=== PATIENT | female | born 1985 | race Caucasian/White ===

== ENCOUNTER 2018-12-03 21:13 | Emergency (ER) | payer BC ==
[2018-12-03 21:38] VITALS: BP 148/85; PULSE 78; RESP 18; TEMP 98.4
[2018-12-03] MEDS ORDERED: LIDOCAINE 1% INJ 10MG/ML (20 ML MDV) SQ ONE (21:58)
--- NOTE | 2018-12-03 22:23 | ED ---
Wound/Laceration HPI - General Chief Complaint: Wound/Laceration Stated Complaint: Hand laceration Time Seen by Provider: 12/03/18 21:56 Source: patient Mode of arrival: ambulatory Limitations: no limitations - History of Present Illness Initial Comments: 33 to feel presenting today for chief complaint of right hand laceration. Patient states she was using a knife to cut better when she cut the palm of her right hand, just proximal to the MTP of the small finger. Patient denies any foreign body, he denies any numbness tingling or loss sensation, decreased range of motion at the digits of the right hand or muscle weakness. Patient denies any sensation deficits. Patient denies any other areas of injury. Patient states her tetanus is up-to-date within the last 5 years. Remaining review of systems negative upon arrival patient appears well no acute distress. Patient denies any recent fever, chills, shortness of breath, chest pain, back pain, abdominal pain, nausea or vomiting, numbness or tingling, dysuria or hematuria, constipation or diarrhea, headaches or visual changes, or any other complaints. - Related Data Home Medications Medication Instructions Recorded Confirmed Ibuprofen [Motrin Ib] 600 mg PO Q8H 12/03/18 12/03/18 Allergies Allergy/AdvReac Type Severity Reaction Status Date / Time No Known Allergies Allergy Verified 12/03/18 21:38 Review of Systems ROS Statement: Those systems with pertinent positive or pertinent negative responses have been documented in the HPI. ROS Other: All systems not noted in ROS Statement are negative. Past Medical History Past Medical History: No Reported History History of Any Multi-Drug Resistant Organisms: None Reported Past Surgical History: No Surgical Hx Reported Past Psychological History: No Psychological Hx Reported Smoking Status: Never smoker Past Alcohol Use History: Rare Past Drug Use History: None Reported General Exam - General Exam Comments Initial Comments: General: The patient is awake and alert, in no distress, and does not appear acutely ill. Eye: Pupils are equal, round and reactive to light, extra-ocular movements are intact. No nystagmus. There is normal conjunctiva bilaterally. No signs of icterus. Cardiovascular: There is a regular rate and rhythm. No murmur, rub or gallop is appreciated. Respiratory: Lungs are clear to auscultation, respirations are non-labored, breath sounds are equal. No wheezes, stridor, rales, or rhonchi. Musculoskeletal: Normal ROM, no tenderness. Strength 5/5. Sensation intact. Pulses equal bilaterally 2+. Neurological: A&O x 3. CN II-XII intact, There are no obvious motor or sensory deficits. Coordination appears grossly intact. Speech is normal. Skin: Skin is warm and dry and no rashes or lesions are noted. 1-1/2 cm laceration of the right palm just proximal to the MTP at the fifth digit. Laceration is through the dermis, mild exposure of adipose, no exposure of tendon or other structure. Patient is able to fully range at the MTP DIP and PIP joint of the right hand, joints were isolated equal comparison with the unaffected hand. No sensation deficits, sensation intact both proximal and distal to injury. Capillary refill less than 2 seconds. No other area of laceration no evidence of foreign body Psychiatric: Cooperative, appropriate mood & affect, normal judgment. Limitations: no limitations Course Vital Signs 12/03/18 21:36 Temperature 98.4 F Pulse Rate 78 Respiratory 18 Rate Blood Pressure 148/85 O2 Sat by Pulse 98 Oximetry Procedures - Laceration Laceration #1 Consent Obtained: verbal consent Indication: laceration Site: hand (near 5th MTP joint proximally) Size (cm): 2 Description: linear Depth: simple, single layer Anesthetic Used: lidocaine 1% Anesthesia Technique: local infiltration Amount (mls): 2 Pre-repair: wound explored, irrigated extensively, deep structures intact Size of Sutures: 5-0 Number of Sutures: 5 Technique: simple, interrupted Patient Tolerated Procedure: well, no complications Medical Decision Making - Medical Decision Making Wound edges approximated well, after cleansing with iodine and extensive irrigation. No exposure of underlying structure. No evidence of tendon injury. Patient neurovascular intact. Full range of motion with full muscle strength. Patient tetanus up-to-date. I did discuss the case with attending provider Dr. Galindo. Patient has no comorbidities, patient was educated on signs symptoms of infection as well as return parameters. Patient is to return in 7 days for suture removal. Patient verbalized understanding of plan and deny questions at this time. Suture care was discussed at length the patient. Disposition Clinical Impression: Hand laceration Disposition: HOME SELF-CARE Condition: Good Instructions (If sedation given, give patient instructions): Care For Your Stitches (ED), Laceration (ED) Additional Instructions: Please use medication as discussed. Please follow-up for suture removal in 7 days. Please return to emergency room if the symptoms increase or worsen or for any other concerns. Is patient prescribed a controlled substance at d/c from ED?: No Referrals: Marcos Dueñas MD [Primary Care Provider] - 1-2 days Time of Disposition: 22:23
== END 2018-12-03 22:50 | disposition home or self-care (01) ==
LOC: EC 21:13
DX: S61.411A Laceration without foreign body of right hand, initial encounter (principal); W26.0XXA Contact with knife, initial encounter
CPT/HCPCS: 99282; 12001; J2001

== ENCOUNTER → 2018-12-07 | Outpatient (CLI) | payer BC ==
--- NOTE | 2018-12-08 20:32 | MR ---
EXAMINATION TYPE: MR brain wo con DATE OF EXAM: 12/07/2018 COMPARISON: None HISTORY: Headache Standard multiplanar, multisequence MRI departmental protocol Multiplanar, multisequence images of the brain were acquired. Diffusion weighted imaging was performe d. FINDINGS: Ventricles and sulci appear normal. There is no mass effect nor midline shift. There is no sign of intracranial hemorrhage. Vargas-white matter structures have fairly normal signal pattern. Ther e is no evidence of cerebral edema. Corpus callosum appears normal. Optic chiasm appears normal. Brai nstem appears normal. There is minimal mucosal thickening in the left maxillary sinus. IMPRESSION: Negative MR scan of the brain. Minimal left maxillary sinusitis.
== END | disposition home or self-care (01) ==
LOC: RADMRIMAIN 20:49
PROVIDERS: ATTEND Internal Medicine
DX: R51 Headache (principal)
CPT/HCPCS: 70551

== ENCOUNTER 2020-09-04 12:16 | Emergency (ER) | payer BC, OTHER ==
[2020-09-04 12:23] VITALS: BP 135/90; PULSE 91; RESP 18; TEMP 98.8
--- NOTE | 2020-09-04 13:01 | ED ---
Wound/Laceration HPI - General Chief Complaint: Wound/Laceration Stated Complaint: [facility]- finger injury Time Seen by Provider: 09/04/20 12:27 Source: patient Mode of arrival: ambulatory Limitations: no limitations - History of Present Illness Initial Comments: 34yo female who sustained a right index finger laceration. pt states she was using a seatbelt cutter to cut an object that was around a persons neck. she states she accidentally cut herself in the proess. pt states that the room was covering in fecal matter and urine and pateint states that she is concerned of exposure in the wound. pt denies additional complaints. Pt denies knonw infectious disease personally. (Exposure in the ER). - Related Data Home Medications Medication Instructions Recorded Confirmed Ibuprofen [Motrin Ib] 600 mg PO Q8H 12/03/18 12/03/18 Allergies Allergy/AdvReac Type Severity Reaction Status Date / Time No Known Allergies Allergy Verified 09/04/20 12:23 Review of Systems ROS Statement: Those systems with pertinent positive or pertinent negative responses have been documented in the HPI. ROS Other: All systems not noted in ROS Statement are negative. Past Medical History Past Medical History: No Reported History Additional Past Medical History / Comment(s): migraines, heart palpitations History of Any Multi-Drug Resistant Organisms: None Reported Past Surgical History: No Surgical Hx Reported Additional Past Surgical History / Comment(s): breast reduction Past Psychological History: Depression Smoking Status: Never smoker Past Alcohol Use History: Rare Past Drug Use History: None Reported General Exam - General Exam Comments Initial Comments: General: The patient is awake and alert, in no distress, and does not appear acutely ill. Eye: Pupils are equal, round and reactive to light, extra-ocular movements are intact. No nystagmus. There is normal conjunctiva bilaterally. No signs of icterus. Musculoskeletal: Normal ROM, no tenderness. Strength 5/5. Sensation intact. Pulses equal bilaterally 2+. Neurological: A&O x 3. CN II-XII intact, There are no obvious motor or sensory deficits. Coordination appears grossly intact. Speech is normal. Skin: Skin is warm and dry and no rashes. 1cm superficial skin flap, no deep laceration, bleeding controlled. Psychiatric: Cooperative, appropriate mood & affect, normal judgment. Limitations: no limitations Course Vital Signs 09/04/20 12:21 Temperature 98.8 F Pulse Rate 91 Respiratory 18 Rate Blood Pressure 135/90 O2 Sat by Pulse 96 Oximetry Medical Decision Making - Medical Decision Making 34yo female presenting today for cc of index finger injury and exposure to fecal matter/urine. Pt has superficial injury that was cleansed well with iodine and water. patient bandaged. will draw source and patient. pt denies known blood e xposure just fecal matter/urine. pt will be notified of the results. discharged appearing well. Disposition Clinical Impression: Skin avulsion Disposition: HOME SELF-CARE Condition: Good Instructions (If sedation given, give patient instructions): Abrasion (ED) Additional Instructions: Please use medication as discussed. Please follow-up with family doctor in the next 2 days.. Please return to emergency room if the symptoms increase or wors en or for any other concerns. Is patient prescribed a controlled substance at d/c from ED?: No Referrals: Marcos Dueñas MD [Primary Care Provider] - 1-2 days Time of Disposition: 13:01
[2020-09-04 20:18] LABS: HIV 2 AB Non-Reactive (Non-Reactive); HIV AB P24 Non-Reactive (Non-Reactive); HIV P24 AG Non-Reactive (Non-Reactive)
[2020-09-04 20:30] LABS: Hepatitis B Surface AB- Quant 805.9 mIU/mL; Hepatitis B Surface Antibody Reactive (Non-Reactive); Hepatitis C IgG Antibody Non-Reactive (Non-Reactive)
== END 2020-09-04 13:10 | disposition home or self-care (01) ==
LOC: EC 12:16
DX: S61.210A Laceration without foreign body of right index finger without damage to nail, initial encounter (principal); Z79.1 Long term (current) use of non-steroidal anti-inflammatories (NSAID); Z77.21 Contact with and (suspected) exposure to potentially hazardous body fluids; Z86.69 Personal history of other diseases of the nervous system and sense organs; W26.8XXA Contact with other sharp object(s), not elsewhere classified, initial encounter
CPT/HCPCS: 36415; 86706; 86803; 87390; 99283

== ENCOUNTER 2022-10-04 11:09 | Outpatient (CLI) | payer BC ==
[2022-10-04 13:06] LABS: Appearance,Urine Clear (Clear); Bacteria,Urine Many /hpf; Bilirubin,Urine Negative (Negative); Blood,Urine Trace (Negative); Color,Urine Light Yellow; Glucose,Urine (UA) Negative (Negative); Ketones,Urine Negative (Negative); Leukocyte Esterase,Urine Negative (Negative); Mucus,Urine Rare /hpf; Nitrite,Urine Negative (Negative); PH, Urine 6.5 (5.0-8.0); Protein,Urine Negative (Negative); RBC,Urine 6 /hpf (0-5); Specific Gravity,Urine 1.008 (1.001-1.035); Squamous Epithelial Cell,Urine 2 /hpf (0-4); Urobilinogen,Urine <2.0 mg/dL (<2.0); WBC,Urine 2 /hpf (0-5)
[2022-10-04 13:14] VITALS: BP 131/74; PULSE 96; RESP 18; TEMP 97.6
--- NOTE | 2022-11-05 11:29 | P.MSEPDOC ---
Presenting Problems - Arrival Data Date of Arrival on Unit: 10/04/22 Time of Arrival on Unit: 11:09 Mode of Transport: Ambulatory - Complaint OB-Reason for Admission/Chief Complaint: Rule Out PROM Comment: possible ROM 10/03 at 0930 Medical History - Information : 1 Para: 0 Term: 0 : 0 Abortions: Spontaneous or Elective: 0 Number of Living Children: 0 - Gestational Age Gestational Age by COURTNEY (wks/days): 23 Weeks and 4 Days Review of Systems - Review of Systems Constitutional: No problems Breast: No problems ENT: No problems Cardiovascular: No problems Respiratory: No problems Gastrointestinal: No problems Genitourinary: No problems Musculoskeletal: No problems Neurological: No problems Skin: No problems Vital Signs - Temperature Temperature: 97.6 F Temperature Source: Temporal Artery Scan - Pulse Pulse Oximetery Pulse Rate: 96 Pulse Assessment Method: Pulse Oximetry - Respirations Respiratory Rate: 18 Oxygen Delivery Method: Room Air O2 Sat by Pulse Oximetry: 98 - Blood Pressure Right Arm Blood Pressure: 131/74 Blood Pressure Mean: 93 Blood Pressure Source: Automatic Cuff Medical Screen Scoring - Assessment - Baby A Baseline FHR: 140 Heart Rate - NICHD Category: Category I (Normal) Physician Notification - Physician Notified Physician Notified Date: 10/04/22 Physician Notified Time: 11:47 Physician: Peewee Gayle New Order Received: Yes - Notification Comment Comment: Dr. Gayle called, report given on maternal and status, c/o possible. ROM since yesterday. Amnisure negative, no contractions noted. Orders to send a UA and. discharge pt home if negative. Maternal Triage Index - Maternal Triage Index Presenting for scheduled procedure w/no complaint: No - Stat/Priority 1 Stat Priority 1: No - Urgent/Priority 2 Urgent Priority 2: Yes Provider Notified: Peewee Gayle Provider Notified Time: 11:47 Criteria Met for Priority 2: 23 4/7 wks, possible ROM since 10/03 at 0930 Disposition - Disposition OB Disposition: Discharge to home Discharge Date: 10/04/22 Discharge Time: 13:08 I agree with the RN Medical Screening Exam: Yes Physician's MSE Comment: I have neither seen nor examined the patient. Case reviewed; plan agreed upon as documented in EMR&OBIX.: Yes Diagnosis: RELATED CONDITIONS, UNSPECIFIED, SECOND TRIMESTER
== END 2022-10-04 13:08 | disposition home or self-care (01) ==
LOC: FBPOP 11:09
PROVIDERS: ATTEND Obstetrics & Gynecology
DX: O26.892 Other specified pregnancy related conditions, second trimester (principal); Z3A.23 23 weeks gestation of pregnancy
CPT/HCPCS: 81001; 84112; 99213

== ENCOUNTER 2023-01-16 19:10 | Inpatient (IN) | payer BC ==
[2023-01-16] MEDS ORDERED: DINOPROSTONE 10 MG INSERT.ER VAGINAL ONE (19:42)
[2023-01-16] MEDS ORDERED: BUTORPHANOL 2 MG/ML 1 ML VIAL IV PRN (20:07)
--- NOTE | 2023-01-16 20:12 | P.HPOB ---
History of Present Illness H&P Date: 01/16/23 Chief Complaint: 38-3/7 weeks, -induced hypertension, induction the patient is a 37-year-old 1 para 0 admitted at 38-3/7 weeks as established by last menstrual period and confirmed by 9 week ultrasound. She is admitted for Cervidil cervical ripening with a diagnosis of -induced hypertension. Her has otherwise been uncomplicated. She does fall into the category of advanced maternal age and had negative fraction testing for trisomy. testing has been reassuring since 32 weeks. She did require addition of labetalol 100 mg twice daily in the mid to late third trimester which has controlled her blood pressures fairly well. She's had some elevated blood pressures starting today, likely from nerves regarding induction. Laboratory workup for preeclampsia has been negative on 2-3 occasions in the third trimester. On labor and delivery, all signs reassuring with a category 1 heart rate tracing. Group B strep status is negative. Obstetrical history: 1 para 0 with current statistics listed in history of present illness. EDC of 01/27/2023 was established by last menstrual period and confirmatory 9 week ultrasound. Laboratory workup done traits of blood type of A+ with a negative antibody screen. Rubella status is immune. The remainder of the laboratory workup was within normal limits. Early Glucola was normal. Second trimester Glucola was elevated but followed by normal three-hour glucose tolerance test. Group B strep status is negative. Gynecologic history: Unremarkable with no history of any infections to include STDs. Review of Systems rreview of systems is confined to history of present illness. Past Medical History Past Medical History: No Reported History Additional Past Medical History / Comment(s): migraines, heart palpitations History of Any Multi-Drug Resistant Organisms: None Reported Past Surgical History: No Surgical Hx Reported Additional Past Surgical History / Comment(s): breast reduction Past Anesthesia/Blood Transfusion Reactions: No Reported Reaction Past Psychological History: Anxiety, Depression Smoking Status: Never smoker Past Alcohol Use History: Rare Past Drug Use History: None Reported Medications and Allergies Home Medications Medication Instructions Recorded Confirmed Type Aspirin [[place] Aspirin EC] 81 mg PO DAILY 10/04/22 01/16/23 History Vit No.179/Iron/Folic 1 tab PO DAILY 10/04/22 01/16/23 History [ Tablet] Allergies Allergy/AdvReac Type Severity Reaction Status Date / Time No Known Allergies Allergy Verified 01/16/23 19:39 Exam Vital Signs Temp Pulse Resp BP Pulse Ox 01/16/23 19:38 97.8 F 76 16 160/88 96 Intake and Output 01/16/23 01/16/23 01/16/23 06:59 14:59 22:59 Other: Weight 134.717 kg in general, this is a well-developed, well-nourished white female in no acute distress. Her heart has a regular rhythm and rate without murmur. Her lungs clear to auscultation bilaterally in all palacios. Her abdomen is gravid, nondistended, has normal active bowel sounds, soft, nontender, without any palpable masses aside from the uterine fundus. Her extremities are without any cyanosis, clubbing, or edema and are nontender to palpation bilaterally. Digital cervical examination at this time demonstrates her she 1 cm dilated, approximately 50% effaced, the vertex in presentation at -2 station. Cervidil is placed in the posterior cul-de-sac in standard fashion. Assessment and Plan (1) Term Current Visit: Yes Status: Acute Code(s): Z34.90 - ENCNTR FOR SUPRVSN OF NORMAL , UNSP, UNSP TRIMESTER SNOMED Code(s): 81327140 (2) induced hypertension Current Visit: Yes Status: Acute Code(s): O13.9 - GESTATIONAL HTN W/O SIGNIFICANT PROTEINURIA, UNSP TRIMESTER SNOMED Code(s): 79768887 Plan: the patient is admitted for Cervidil cervical ripening to be followed by Pitocin induction the morning should it be necessary. Cervidil has been placed. As her blood pressures are mild to moderately elevated on admission, labs for preeclampsia tool be sent as well. She will continue to have close maternal and surveillance and expectant management will be practiced. She is a good candidate for either IV, epidural, or nitrous analgesia, whichever she may choose. Pitocin was restarted at 0600 assuming labor does not ensue with Cervidil.
[2023-01-16 20:54] LABS: Basophils % (A) 0 %; Eosinophils # (A) 0.2 k/uL (0-0.7); Eosinophils % (A) 1 %; HCT 36.9 % (34.0-46.0); HGB 12.5 gm/dL (11.4-16.0); Lymphocytes # (A) 2.1 k/uL (1.0-4.8); Lymphocytes % (A) 15 %; MCH 29.8 pg (25.0-35.0); MCHC 33.9 g/dL (31.0-37.0); Mean Platelet Volume 7.6; Monocytes # (A) 0.6 k/uL (0-1.0); Monocytes % (A) 4 %; Neutrophils # (A) 10.6 k/uL (1.3-7.7); Neutrophils % (A) 78 %; Platelet Count 279 k/uL (150-450); RBC 4.19 m/uL (3.80-5.40); RDW 14.2 % (11.5-15.5); WBC 13.7 k/uL (3.8-10.6)
[2023-01-16 21:05] LABS: ALT 22 U/L (4-34); AST 24 U/L (14-36); African American GFR (CKD) >90 (>60 ml/min/1.73 sqM); Blood Urea Nitrogen 9 mg/dL (7-17); LDH 196 U/L (120-246); Non-African American GFR(CKD) >90 (>60 ml/min/1.73 sqM); Uric Acid 5.3 mg/dL (3.7-7.4)
[2023-01-16 21:18] LABS: INR 0.9 (<1.2); Prothrombin Time 9.5 sec (9.0-12.0)
[2023-01-16 22:05] LABS: Appearance,Urine Clear (Clear); Bacteria,Urine Rare /hpf; Bilirubin,Urine Negative (Negative); Blood,Urine Small (Negative); Color,Urine Light Yellow; Glucose,Urine (UA) Negative (Negative); Ketones,Urine Negative (Negative); Leukocyte Esterase,Urine Negative (Negative); Mucus,Urine Rare /hpf; Nitrite,Urine Negative (Negative); Protein,Urine Trace (Negative); RBC,Urine 34 /hpf (0-5); Specific Gravity,Urine 1.015 (1.001-1.035); Squamous Epithelial Cell,Urine 1 /hpf (0-4); Urobilinogen,Urine <2.0 mg/dL (<2.0); WBC,Urine 1 /hpf (0-5)
[2023-01-17] MEDS ORDERED: CARBOPROST TROMETHAMINE 250 MCG/ML 1 ML AMP IM PRN (05:57)
[2023-01-17] MEDS ORDERED: TRANEXAMIC ACID IN NACL,ISO-OS 1,000 MG in EMPTY BAG 1 BAG IV PRN (05:57)
[2023-01-17] MEDS ORDERED: TERBUTALINE 1 MG/ML VIAL SQ PRN (05:57)
[2023-01-17] MEDS ORDERED: miSOPROStoL 200 MCG TAB PO PRN (05:57)
[2023-01-17] MEDS ORDERED: LIDOCAINE 0.5% (PF) 5 MG/ML (50 ML SDV) SQ PRN (05:57)
[2023-01-17] MEDS ORDERED: METHYLERGONOVINE 0.2 MG/ML 1 ML AMP IM PRN (05:57)
[2023-01-17] MEDS ORDERED: OXYTOCIN 10 UNIT/ML 1 ML VIAL IM PRN (05:57)
[2023-01-17] MEDS: LACTATED RINGERS 1,000 ML IV SCH ×4 (06:00→16:50)
[2023-01-17] MEDS ORDERED: OXYTOCIN 30 UNITS/500 ML NS 30 UNIT in SALINE 1 500ML.BAG IV SCH (06:00)
[2023-01-17] MEDS ORDERED: SODIUM CHLORIDE 0.9% 100 ML BAG ONE (10:55)
[2023-01-17] MEDS ORDERED: fentaNYL (PF) 50 MCG/ML 5 ML AMP ONE (10:55)
[2023-01-17] MEDS ORDERED: ROPIVACAINE 5 MG/ML 20 ML AMPULE ONE (10:55)
[2023-01-17] MEDS ORDERED: ROPIVACAINE 100 MG, fentaNYL (PF). 200 MCG in SODIUM CHLORIDE 0.9% 76 ML EPIDURAL ONE (11:31)
[2023-01-17] MEDS ORDERED: BENZOCAINE/MENTHOL SPRAY 1 GM/SPRAY AEROSOL TOPICAL PRN (19:10)
[2023-01-17] MEDS ORDERED: ZOLPIDEM 5 MG TAB PO PRN (19:10)
[2023-01-17] MEDS ORDERED: HYDROCORTISONE 2.5% RECTAL CREAM 30 GM TUBE RECTAL PRN (19:10)
[2023-01-17] MEDS ORDERED: LANOLIN CREAM 5 GM TUBE TOPICAL PRN (19:10)
[2023-01-17] MEDS ORDERED: diphenhydrAMINE 50 MG CAP PO PRN (19:10)
[2023-01-17] MEDS ORDERED: diphenhydrAMINE 25 MG CAP PO PRN (19:10)
[2023-01-17] MEDS: IBUPROFEN 600 MG TAB PO PRN (19:23)
[2023-01-17] MEDS: SENNOSIDES-DOCUSATE SODIUM 1 EACH TAB PO SCH (19:24)
[2023-01-17] MEDS: ACETAMINOPHEN TAB 325 MG TAB PO PRN (21:55)
[2023-01-18] MEDS: IBUPROFEN 600 MG TAB PO PRN ×2 (01:19→07:47)
[2023-01-18] MEDS: ACETAMINOPHEN TAB 325 MG TAB PO PRN ×2 (04:35→13:01)
[2023-01-18] MEDS: SENNOSIDES-DOCUSATE SODIUM 1 EACH TAB PO SCH (07:47)
[2023-01-18 08:20] LABS: Basophils % (A) 0 %; Eosinophils # (A) 0.2 k/uL (0-0.7); Eosinophils % (A) 1 %; HCT 34.2 % (34.0-46.0); HGB 11.3 gm/dL (11.4-16.0); Lymphocytes % (A) 11 %; MCH 29.6 pg (25.0-35.0); MCHC 33.2 g/dL (31.0-37.0); MCV 89.2 fL (80.0-100.0); Mean Platelet Volume 7.5; Monocytes # (A) 0.8 k/uL (0-1.0); Monocytes % (A) 5 %; Neutrophils # (A) 14.7 k/uL (1.3-7.7); Neutrophils % (A) 82 %; Platelet Count 274 k/uL (150-450); RBC 3.83 m/uL (3.80-5.40); RDW 14.4 % (11.5-15.5); WBC 17.9 k/uL (3.8-10.6)
--- NOTE | 2023-01-18 08:35 | P.PROBDLV ---
Vaginal Delivery Note - . Vaginal Delivery Note: This no was originally dictated into the wrong patient's chart, a patient with the same first name and in the room immediately adjacent. The patient is a 37-year-old 1 para 0 admitted at 38-3/7 weeks by good dating parameters. She is admitted with an unfavorable cervix and -induced hypertension with slightly increasing blood pressure requirements. Last evening she had Cervidil placed for cervical ripening made of 6 no significant cervical change overnight. Her cervix in the morning was amenable artificial rupture of membranes she is only 1 cm dilated, 50% effaced, with the vertex in presentation at -2 station. On admission, all signs reassuring with a category 1 heart rate tracing. She underwent artificial rupture of membranes and had Pitocin augmentation started. She made progress to the active phase of labor and had an epidural catheter placed for analgesia. Throughout the course of the active phase of labor, she had intermittent category 2 heart rate tracings which resolved with [place] the Pitocin and position changes as well as fluid bolus. With each occasion, the heart tones returned to category 1. She continued to make progress through the active phase of labor to complete and then pushed over the course of approximate 1 hour and 15 minutes to a normal spontaneous vaginal delivery of a viable 5 lbs. 13 oz. baby boy with Apgars of 8 at 1 minute and 9 at 5 minutes delivered in the direct occiput anterior position. The placenta was delivered spontaneously, intact, and grossly normal though there was noted to be an accessory cotyledon or lobe of the placenta. There was a grossly normal three-vessel cord which was inserted at the margin of the main body of the placenta and immediately between the main body of the placenta and the accessory lobe. There was a small midline perineal laceration of the vagina which was repaired in standard fashion using 3-0 chromic catgut. Estimated blood loss for the case is approximately 100 mL. There were no complications. All sponge, instrument, needle counts were correct. Both mother and infant are resting comfortably in recovery.
--- NOTE | 2023-01-18 08:39 | P.DS ---
Providers Date of admission: 01/16/23 19:10 Expected date of discharge: 01/18/23 Attending physician: Peewee Gayle Primary care physician: Stated None - Discharge Diagnosis(es) (1) Term Current Visit: Yes Status: Acute (2) induced hypertension Current Visit: Yes Status: Acute (3) Normal spontaneous vaginal delivery Current Visit: Yes Status: Acute Hospital Course: The patient is a 37-year-old 1 para 0 admitted at 38-3/7 weeks by good dating parameters. She is admitted for Cervidil cervical ripening secondary to -induced hypertension. Her was otherwise uncomplicated. She does fall the category of advanced maternal age and had normal fraction testing for trisomy. On labor and delivery, all signs reassuring with category 1 heart rate tracing. Group B strep status is negative. She had Cervidil placed which failed to make significant progress overnight. Nevertheless, she was amenable to rupture of membranes the morning which was carried out for clear fluid. She made progress into the active phase of labor and had an epidural catheter placed for analgesia. She then progressed steadily through the active phase to complete and pushed to a normal spontaneous vaginal delivery of a viable 5 lbs. 13 oz. baby boy with Apgars of 8 at 1 minute and 9 at 5 minutes. Her course was unremarkable with vital signs remaining stable and her temperature was afebrile throughout. She was deemed stable for discharge on day #1 and was discharged home to follow-up in the office in 6 weeks' time routinely. Discharge instructions included calling for any significantly increased bleeding or foul-smelling lochia, significantly increased fever abdominal pain, perineal complaints, breast complaints, or anything else that concerned her. She was additionally instructed to have nothing in the vagina for at least 6 weeks time to include intercourse. She understood her instructions and agrees follow up as noted above. Discharge medications included continued vitamins as she has opted to breast-feed. She was otherwise to use [id number] analgesic pain medications as needed. Maternal blood type is A+ and rubella status is immune. Plan - Discharge Summary New Discharge Prescriptions: No Action Vit No.179/Iron/Folic [ Tablet] 1 tab PO DAILY Aspirin [[place] Aspirin EC] 81 mg PO DAILY Discharge Medication List Aspirin [[place] Aspirin EC] 81 mg PO DAILY 10/04/22 [History] Vit No.179/Iron/Folic [ Tablet] 1 tab PO DAILY 10/04/22 [History] Follow up Appointment(s)/Referral(s): Peewee Gayle MD [STAFF PHYSICIAN] - 6 Weeks Discharge Disposition: HOME SELF-CARE
[2023-01-18 15:19] VITALS: BP 136/74; PULSE 86; RESP 18; TEMP 97.9
== END 2023-01-18 18:32 | disposition home or self-care (01) | DRG 807 ==
LOC: 4FBP 19:10
PROVIDERS: ADMIT Obstetrics & Gynecology; ATTEND Obstetrics & Gynecology
PROC: 3E0P7VZ Introduction of Hormone into Female Reproductive, Via Natural or Artificial Opening (ICD-10-PCS; principal; 2023-01-16)
PROC: 0HQ9XZZ Repair Perineum Skin, External Approach (ICD-10-PCS; 2023-01-17)
PROC: 10907ZC Drainage of Amniotic Fluid, Therapeutic from Products of Conception, Via Natural or Artificial Opening (ICD-10-PCS; 2023-01-17)
PROC: 10E0XZZ Delivery of Products of Conception, External Approach (ICD-10-PCS; 2023-01-17)
PROC: 3E033VJ Introduction of Other Hormone into Peripheral Vein, Percutaneous Approach (ICD-10-PCS; 2023-01-17)
DX: O13.4 Gestational [pregnancy-induced] hypertension without significant proteinuria, complicating childbirth (principal); O70.0 First degree perineal laceration during delivery; O43.193 Other malformation of placenta, third trimester; Z86.59 Personal history of other mental and behavioral disorders; Z79.82 Long term (current) use of aspirin; Z3A.38 38 weeks gestation of pregnancy; Z37.0 Single live birth
CPT/HCPCS: 81001; 82565; 82570; 83615; 84156; 84450; 84460; 84520; 84550; 85025; 85610

== ENCOUNTER → 2023-10-19 | Outpatient (CLI) | payer BC ==
--- NOTE | 2023-10-21 16:47 | MM ---
Reason for Exam: Screening (asymptomatic). Patient History: Menarche at age 15. First Full-Term at age 37. Late child-bearing (after 30). Premenopausal. Currently using Hormonal Contraceptives, starting at age 37. 2006, Bilateral Reduction. Mother had breast cancer, age 57. Mother tested for BRCA2 outcome was negative. Risk Values: Gely 5 year model risk: 0.7%. NCI Lifetime model risk: 19.6%. Tissue Density: There are scattered fibroglandular densities. Findings: Analyzed By CAD. The pattern is symmetrical. There are scattered benign-appearing small round calcifications present bilaterally. There is some mild distortion in the upper outer anterior left breast may be summation density. Additional workup is recommended. No suspicious groups of microcalcifications, spiculated or lobular masses, architectural distortion or other secondary signs of malignancy are mammographically apparent. Overall Assessment: Incomplete: need additional imaging evaluation, BI-RAD 0 Management: Diagnostic Mammogram of the left breast. A negative mammogram report should not preclude additional follow up of suspicious palpable abnormalities. Patient should continue monthly self breast exam. A clinical breast exam by your physician is recommended on an annual basis and results should be correlated with mammographic findings. Electronically signed and approved by: Camilo Borjas D.O. Radiologis
== END | disposition home or self-care (01) ==
LOC: RADMAMWWP 13:49
PROVIDERS: ATTEND Obstetrics & Gynecology
DX: Z12.31 Encounter for screening mammogram for malignant neoplasm of breast (principal); Z80.3 Family history of malignant neoplasm of breast
CPT/HCPCS: 77063; 77067

== ENCOUNTER → 2023-10-27 | Outpatient (CLI) | payer BC ==
--- NOTE | 2023-10-27 11:50 | MM ---
Reason for Exam: Additional evaluation requested from abnormal screening. Last screening mammogram was performed less than 1 month ago. Patient History: Menarche at age 15. First Full-Term at age 37. Late child-bearing (after 32). Premenopausal. Currently using Hormonal Contraceptives, starting at age 37. 2006, Bilateral Reduction. Mother had breast cancer, age 57. Mother tested for BRCA2 outcome was negative. Risk Values: Gely 5 year model risk: 0.7%. NCI Lifetime model risk: 19.6%. Prior Study Comparison: 10/19/2023 Bilateral MG 3D screening mammo w/cad, [facility]. Tissue Density: Left: There are scattered fibroglandular densities. Findings: Analyzed By CAD. Asymmetric densities upper outer quadrant anterior left breast becomes less defined on additional views. Suspect superimposition shadow with fibroglandular tissue. Precautionary 6 month follow-up can be performed. Overall Assessment: Probably benign, BI-RAD 3 Management: Diagnostic Mammogram of the left breast in 6 months. Results were given to the patient verbally at the time of exam. Patient should continue monthly self-breast exams. A clinical breast exam by your physician is recommended on an annual basis. This exam should not preclude additional follow-up of suspicious palpable abnormalities. Note on Gely scores and lifetime risk: 1. A Gely score greater than 3% is considered moderate risk. If this is the case, consider specialist referral to assess eligibility for a risk reducing agent. 2. If overall lifetime risk for the development of breast cancer is 20% or higher, the patient may qualify for future screening with alternating mammogram and breast MRI. Electronically signed and approved by: Apple Lizama M.D. Radiologist
== END | disposition home or self-care (01) ==
LOC: RADMAMWWP 10:44
PROVIDERS: ATTEND Obstetrics & Gynecology
DX: R92.322 Mammographic fibroglandular density, left breast (principal); Z80.3 Family history of malignant neoplasm of breast
CPT/HCPCS: 77061; 77065

== ENCOUNTER → 2024-03-21 | Outpatient (CLI) | payer BC ==
[2024-03-21 15:44] LABS: ALT 12 U/L (8-44); AST 19 U/L (13-35); Albumin 4.5 g/dL (3.8-4.9); Albumin/Globulin Ratio 2.05 Ratio (1.60-3.17); Alkaline Phosphatase 79 U/L (41-126); BUN/Creat Ratio 20.71 Ratio (12.00-20.00); Blood Urea Nitrogen 14.5 mg/dL (9.0-27.0); Calcium 9.7 mg/dL (8.7-10.3); Carbon Dioxide 23.2 mmol/L (21.6-31.8); Chloride 103 mmol/L (96-109); Chol/HDL Ratio 4.76 Ratio; Globulin 2.2 g/dL (1.6-3.3); Glucose 115 mg/dL (70-110); HCT 41.3 % (37.2-46.3); HGB 13.5 g/dL (12.0-15.0); LDL Cholesterol,Calculated 112.1 mg/dL (0.0-131.0); MCH 29.4 pg (27.0-32.0); MCHC 32.7 g/dL (32.0-37.0); Mean Platelet Volume 9.9 FL (9.5-12.2); NRBC Per 100 WBC 0 X 10*3/uL (0.00-0.01); Platelet Count 301 X 10*3/uL (140-440); Potassium 4.5 mmol/L (3.5-5.5); RBC 4.59 X 10*6/uL (4.10-5.20); RDW 12.7 % (11.5-14.5); Sodium 138 mmol/L (135-145); Total Bilirubin <0.2 mg/dL (0.3-1.2); Total Protein 6.7 g/dL (6.2-8.2); WBC 7.58 X 10*3/uL (4.50-10.00)
== END | disposition home or self-care (01) ==
LOC: LABWHC1 11:58
PROVIDERS: ATTEND Internal Medicine
DX: I10 Essential (primary) hypertension (principal); E78.2 Mixed hyperlipidemia
CPT/HCPCS: 36415; 80053; 80061; 83036; 85027